=== PATIENT | female | born 1990 | race Caucasian/White ===

== ENCOUNTER 2016-10-27 12:58 | Emergency (ER) | payer BC ==
[2016-10-27 13:13] VITALS: BP 94/77
--- NOTE | 2016-10-27 13:23 | EDM.PDOC ---
Scribed by Maureen Sommer 10/27/16 1320 for Chapin Leo MD ED HPI GENERAL MEDICAL PROBLEM - General Chief Complaint: Lower Extremity Injury/Pain Stated Complaint: [id number] CUT LEG Time Seen by Provider: 10/27/16 13:10 Source of Information: Reports: Patient, RN, RN Notes Reviewed History Limitations: Reports: No Limitations - History of Present Illness INITIAL COMMENTS - FREE TEXT/NARRATIVE: Patient cut her leg on a metal gerry on her boat. Denies any other injury. Tetanus vaccine is less than 5 years. Onset: Today Location: Reports: Lower Extremity, Right Severity: Mild Improves with: Reports: None Worsens with: Reports: None Associated Symptoms: Reports: No Other Symptoms - Related Data Allergies Allergy/AdvReac Type Severity Reaction Status Date / Time bupivacaine [From Marcaine] Allergy Anaphylactic Verified 10/27/16 13:09 Shock lidocaine Allergy Anaphylactic Verified 10/27/16 13:09 Shock Home Meds: Home Meds Vit #76/Iron,Carb/Fa [Prenatabs Rx] 1 tab PO DAILY 10/27/16 [History] Review of Systems - Review of Systems Review Of Systems: ROS reveals no pertinent complaints other than HPI. ED EXAM, GENERAL - Physical Exam Exam: See Below Exam Limited By: No Limitations General Appearance: Alert, WD/WN, No Apparent Distress, Obese Neurological: Alert, Oriented, CN II-XII Intact, Normal Cognition, Normal Gait, Normal Reflexes, No Motor/Sensory Deficits Psychiatric: Normal Affect, Normal Mood Skin Exam: Other (superficial laceration to right anterior mid-thigh, linear 4.0cm.) ED TRAUMA EXTREMITY PROCEDURES - Laceration/Wound Repair Right Middle Anterior Thigh Lac/Wound Length In cm: 4 Appearance: Superficial, Linear, Clean Distal NVT: Neuro & Vascular Intact, No Tendon Injury Local Anesthesia - Lidocaine (Xylocaine): Other (none) Skin Prep: Chlorhexidine (Hibiciens), Saline Saline Irrigation (cc's): 500 Exploration/Debridement/Repair: Wound Explored, in a Bloodless Field, Explored to Base, No Foreign Material Found Closed With: Dermabond Drain Placement: No Sterile Dressing Applied: None Tetanus Status Addressed: Yes Complications: No Course - Vital Signs Last Recorded V/S: Last Vital Signs Temp 36.6 C 10/27/16 13:09 Pulse 76 10/27/16 13:09 Resp 18 10/27/16 13:09 BP 94/77 10/27/16 13:09 Pulse Ox 100 10/27/16 13:09 Departure - Departure Time of Disposition: 13:16 Disposition: Home, Self-Care 01 Condition: Good Clinical Impression: Laceration of right thigh - Discharge Information Instructions: Laceration Care, Adult, [id number] Forms: ED Department Discharge Additional Instructions: Keep clean and dry for 48 hours. Follow up in clinic or ER if any signs of infection develop. I have read and agree with the documentation that has been completed regarding this visit. By signing this record, I attest that the documentation was completed in my physical presence and is an accurate record of the encounter.
== END 2016-10-27 13:24 | disposition home or self-care (01) ==
LOC: DL.ED 12:58
DX: S71.111A Laceration without foreign body, right thigh, initial encounter (principal); W26.8XXA Contact with other sharp object(s), not elsewhere classified, initial encounter; Z88.8 Allergy status to other drugs, medicaments and biological substances
CPT/HCPCS: 12002; 99283